=== PATIENT | female | born 1955 | race Caucasian/White ===

== ENCOUNTER 2018-11-05 07:08 | Emergency (ER) | payer BC ==
--- NOTE | 2018-11-05 07:13 | UC ---
Eye Complaint HPI - HPI Summary HPI Summary: Pt with left eye reddness x 3 days. This am with yellow discharge, crusty in am. + itching., no vision changes. no corrective lenses. mild head congestion medications reviewed this visit - History of Current Complaint Stated Complaint: EYE ISSUE Hx Obtained From: Patient ?: No Onset/Duration: Gradual Onset, Lasting Days - Allergies/Home Medications Allergies/Adverse Reactions: Allergies Allergy/AdvReac Type Severity Reaction Status Date / Time codeine Allergy Hallucinati Verified 11/05/18 07:29 ons Sulfa (Sulfonamide Allergy Rash Verified 11/05/18 07:29 Antibiotics) PMH/Surg Hx/FS Hx/Imm Hx Previously Healthy: Yes - Surgical History Surgical History: None - Family History Known Family History: Positive: Non-Contributory - Social History Lives: With Family Alcohol Use: Rare Substance Use Type: None Review of Systems All Other Systems Reviewed And Are Negative: Yes Constitutional: Positive: Negative Skin: Positive: Negative Eyes: Positive: Drainage, Eye Redness. Negative: Blurred Vision, Diplopia, Photophobia ENT: Positive: Negative Respiratory: Positive: Negative Physical Exam - Summary Physical Exam Summary: Vital Signs Reviewed: Yes A+Ox3, no distress Eyes: left eye injected, NICOLLE. EOM intact and full, dry secretions lid, no photophobia, crisp fundoscopic margin ENT: Hearing grossly normal TM x 2 clear, nasal congestion, mild PND, mmoist, uvula midline, no exudate, no erythema Neck: Positive: Supple Respiratory: Positive: No respiratory distress, No accessory muscle use + CTA throughout no w/r Cardiovascular: RRR nl s1, s2 no m/r CBT <2 sec abd soft + BS nt/nd no guarding, no distension Musculoskeletal Exam: KNIGHT x 4 without difficulty Strength Intact, ROM Intact Neurological: Positive: Alert, + sensation throughout Psychological: Positive: Normal Response To Family Skin: Positive: no rash, no ecchymosis Triage Information Reviewed: Yes Eye Complaint Course/Dx - Course Course Of Treatment: Pt with progressive left eye erythema, itching, drainage. visual acuity reviewed and non concerning. exam c/w conjunctivitis - no contact lenses. hygeine. warm compresses - Differential Dx/Diagnosis Provider Diagnosis: Conjunctivitis Discharge - Sign-Out/Discharge Documenting (check all that apply): Patient Departure All imaging exams completed and their final reports reviewed: No Studies - Discharge Plan Condition: Stable Disposition: HOME Prescriptions: Ciprofloxacin 0.3% OPTH.KAROLYN* [Cipro 0.3% Opth*] 2 drop LEFT EYE Q8HR #1 btl Patient Education Materials: Conjunctivitis (ED) Referrals: Belkis Maria PA [Primary Care Provider] - Nicolás Charles MD [Medical Doctor] - Additional Instructions: - apply eye drop to affected eye, 3 times a day for the next 5 days - Use a clean, wet warm washcloth to help soften eye secretions if eye lid is sticky - This is very contagious - thorough hand washing is important -contact the seeing eye dog trainer to schedule a follow-up or if you have any questions or concerns (pain, vision changes, light sensitivity) - Billing Disposition and Condition Condition: STABLE Disposition: Home
[2018-11-05 07:39] VITALS: BP 137/96
== END 2018-11-05 08:25 | disposition home or self-care (01) ==
LOC: UCEAST 07:08
DX: H10.32 Unspecified acute conjunctivitis, left eye (principal); Z88.5 Allergy status to narcotic agent; Z88.2 Allergy status to sulfonamides
CPT/HCPCS: 99212; G0463